=== PATIENT | female | born 1955 | race Caucasian/White ===

== ENCOUNTER 2019-08-31 13:29 | Outpatient (CLI) | payer MEDICARE, BC ==
--- NOTE | 2019-08-27 17:45 | PCM.SN ---
- Free Text/Narrative Note: Patient receives Prolia for post menopausal osteoporosis. Anny Jones,INDUSTRIAL TRUCK OPERATOR
[2019-08-31] MEDS ORDERED: Denosumab 60 MG/1 ML Syringe SUBCUT ONE (13:30)
[2019-08-31 13:48] VITALS: BP 111/76; PULSE 82
== END 2019-08-31 13:49 | disposition home or self-care (01) ==
LOC: LL.ACU 13:29
PROVIDERS: ATTEND Nurse Practitioner Family
DX: M81.0 Age-related osteoporosis without current pathological fracture (principal)
CPT/HCPCS: 96372; J0897